=== PATIENT | male | born 1975 | race Caucasian/White ===

== ENCOUNTER 2024-05-18 21:11 | Emergency (ER) | payer BC ==
[2024-05-18 23:22] VITALS: BP 00/00; PULSE 0; BMI 37.3
== END 2024-05-19 02:00 | disposition expired ==
LOC: JER 21:11
PROC: 5A12012 Performance of Cardiac Output, Single, Manual (ICD-10-PCS; principal; 2024-05-18)
DX: I46.9 Cardiac arrest, cause unspecified (principal)
CPT/HCPCS: 92950; 99285-25